=== PATIENT | male | born 1990 | race Caucasian/White ===

== ENCOUNTER 2017-12-27 10:18 | Emergency (ER) | END 2017-12-27 13:42 | disposition home or self-care (01) ==

== ENCOUNTER 2017-12-28 04:58 | Emergency (ER) | END 2017-12-28 06:20 | disposition home or self-care (01) ==

== ENCOUNTER 2019-04-13 09:36 | Emergency (ER) | payer SELFPAY ==
[~2019-04-13] VITALS: Ht 165.1 cm; Wt 92.2 kg
[~2019-04-13 09:36] MED LIST: ACYC800T5 PO; BEN25 PO; ERYT1OIN6 RIGHT EYE; NAPR-985 PO; ONDA4TAB14 PO
[2019-04-13 09:40] VITALS: BP 148/64; PULSE 71; RESP 18; Ht 165.1 cm; Wt 92.2 kg
[2019-04-13] MEDS ORDERED: PETROLATUM 5 GM OINT TOP SCH (10:45)
[2019-04-13] MEDS ORDERED: TETRACAINE 0.5% 4 ML OPH RIGHT EYE ONE (11:00)
[2019-04-13] MEDS ORDERED: ERYTHROMYCIN 1 GM OPH OINT RIGHT EYE ONE (11:00)
[2019-04-13] MEDS ORDERED: FLUORESCEIN STRIP RIGHT EYE ONE (13:00)
== END 2019-04-13 13:28 | disposition home or self-care (01) ==
LOC: FTE 09:36
DX: S05.91XA Unspecified injury of right eye and orbit, initial encounter (principal); X58.XXXA Exposure to other specified factors, initial encounter; Y92.89 Other specified places as the place of occurrence of the external cause